=== PATIENT | male | born 1965 | race Caucasian/White ===

== ENCOUNTER 2021-08-14 05:56 | Emergency (ER) | payer MEDICAID ==
[~2021-08-14] VITALS: Ht 177.8 cm; Wt 68.2 kg
[2021-08-14 06:02] VITALS: BP 144/74
== END 2021-08-14 07:25 | disposition left against medical advice (07) ==
LOC: ER 05:56
DX: L53.9 Erythematous condition, unspecified (principal); Z53.21 Procedure and treatment not carried out due to patient leaving prior to being seen by health care provider

== ENCOUNTER 2022-01-30 04:26 | Emergency (ER) | payer MEDICAID ==
[~2022-01-30] VITALS: Ht 180.3 cm; Wt 68.2 kg
[2022-01-30 04:30] VITALS: BP 112/70
== END 2022-01-30 07:46 | disposition left against medical advice (07) ==
LOC: ER 04:26
DX: Z76.0 Encounter for issue of repeat prescription (principal); Z53.21 Procedure and treatment not carried out due to patient leaving prior to being seen by health care provider

== ENCOUNTER 2022-02-24 18:54 | Emergency (ER) | payer MEDICAID ==
[~2022-02-24] VITALS: Ht 177.8 cm; Wt 65.9 kg
[2022-02-24 19:15] VITALS: BP 129/80
[2022-02-24] MEDS ORDERED: sulfamethoxazole/trimethoprim DS (800/160mg) tablet PO ONE (20:55)
[2022-02-24] MEDS ORDERED: SULF1TAB49 PO (20:57)
== END 2022-02-24 21:25 | disposition home or self-care (01) ==
LOC: ER 18:55
DX: L02.31 Cutaneous abscess of buttock (principal); F12.10 Cannabis abuse, uncomplicated; F15.10 Other stimulant abuse, uncomplicated; G89.29 Other chronic pain; M54.9 Dorsalgia, unspecified; Z59.00 Homelessness unspecified; Z56.0 Unemployment, unspecified; Z88.0 Allergy status to penicillin; Z79.899 Other long term (current) drug therapy
CPT/HCPCS: 99283

== ENCOUNTER 2022-03-04 00:43 | Emergency (ER) | payer MEDICAID ==
[~2022-03-04] VITALS: Ht 177.8 cm; Wt 65.9 kg
[~2022-03-04 00:43] MED LIST: SULF1TAB49 PO
[2022-03-04 01:18] VITALS: BP 105/72
== END 2022-03-04 02:28 | disposition left against medical advice (07) ==
LOC: ER 00:44
DX: Z76.0 Encounter for issue of repeat prescription (principal); Z53.21 Procedure and treatment not carried out due to patient leaving prior to being seen by health care provider

== ENCOUNTER 2022-03-27 21:17 | Emergency (ER) | payer MEDICAID ==
[~2022-03-27] VITALS: Ht 175.3 cm; Wt 60.0 kg
[2022-03-27 22:37] VITALS: BP 124/69
[2022-03-27] MEDS ORDERED: buprenorphine/naloxone 8MG-2MG SUBlingual film SL SCH (23:15)
== END 2022-03-27 23:32 | disposition home or self-care (01) ==
LOC: ER 21:18
DX: F11.23 Opioid dependence with withdrawal (principal); G89.29 Other chronic pain; M54.50 Low back pain, unspecified; F17.200 Nicotine dependence, unspecified, uncomplicated; F15.20 Other stimulant dependence, uncomplicated; Z56.0 Unemployment, unspecified; Z59.00 Homelessness unspecified
CPT/HCPCS: 99284

== ENCOUNTER 2022-04-03 14:53 | Emergency (ER) | payer MEDICAID ==
[~2022-04-03] VITALS: Ht 177.8 cm; Wt 70.0 kg
[2022-04-03 15:09] VITALS: BP 115/69
[2022-04-03] MEDS ORDERED: buprenorphine/naloxone 8MG-2MG SUBlingual film SL STA (15:48)
[2022-04-03] MEDS ORDERED: BUPR1FIL3 SL (15:50)
--- NOTE | 2022-04-03 16:18 | NUR ---
Met with patient in regards to starting Suboxone. Patient has been on Suboxone in the past and wants to restart. Gianluca is starting patient today and I set patient up with [facility] to continue meds. I gave patient my card to call me with any questions.
== END 2022-04-03 16:24 | disposition home or self-care (01) ==
LOC: ER 14:53
DX: F11.90 Opioid use, unspecified, uncomplicated (principal); Z76.0 Encounter for issue of repeat prescription
CPT/HCPCS: 99283

== ENCOUNTER 2022-04-12 06:35 | Emergency (ER) | payer MEDICAID ==
[~2022-04-12] VITALS: Ht 177.8 cm; Wt 68.9 kg
[2022-04-12 06:39] VITALS: BP 130/83
[2022-04-12 09:01] LABS: BASOPHILS # (AUTO) 0.1 X10'3 (0-0.2); BASOPHILS % (AUTO) 0.9 % (0-1); EOSINOPHILS # (AUTO) 0.2 X10'3 (0-0.9); EOSINOPHILS % (AUTO) 2.9 % (0-6); HEMATOCRIT 37.8 % (35.0-45.0); HEMOGLOBIN 12.7 g/dl (12.0-16.0); LYMPHOCYTES # (AUTO) 1.9 X10'3 (1.1-4.8); LYMPHOCYTES % (AUTO) 23.6 % (21-51); MEAN CORPUSCULAR HEMOGLOBIN 29.9 PG (27.0-31.0); MEAN CORPUSCULAR HGB CONC 33.5 g/dL (33.0-36.5); MEAN CORPUSCULAR VOLUME 89.1 FL (78-98); MONOCYTES # (AUTO) 0.9 X10'3 (0-0.9); MONOCYTES % (AUTO) 11.4 % (2-12); NEUTROPHILS # (AUTO) 4.9 X10'3 (1.8-7.7); NEUTROPHILS % (AUTO) 61.2 % (42-75); PLATELET COUNT 245 X10'3 (140-440); RED BLOOD COUNT 4.24 X10'6 (4.20-5.60); RED CELL DISTRIBUTION WIDTH 14.3 % (11.5-14.5); WHITE BLOOD COUNT 8.1 X10'3 (4.5-11.0)
[2022-04-12 09:11] LABS: ALANINE AMINOTRANSFERASE 51 U/L (12-78); ALBUMIN 3.5 G/DL (3.4-5.0); ALBUMIN/GLOBULIN RATIO 0.9 (1.1-1.5); ALKALINE PHOSPHATASE 100 IU/L (46-116); ANION GAP 7 (8-16); ASPARTATE AMINO TRANSFERASE 33 U/L (10-37); BILIRUBIN,TOTAL 0.1 MG/DL (0.1-1.0); BLOOD UREA NITROGEN 23 MG/DL (7-18); BUN/CREATININE RATIO 23.2 (6.6-38.0); CALCIUM 9.1 MG/DL (8.5-10.1); CHLORIDE 104 MMOL/L (99-107); CREATININE 0.99 MG/DL (0.40-0.90); GLUCOSE 96 MG/DL (70-104); POTASSIUM 4.3 MMOL/L (3.5-5.1); SODIUM 137 MMOL/L (135-145); TOTAL CARBON DIOXIDE 25.6 MMOL/L (24-32); TOTAL PROTEIN 7.4 G/DL (6.4-8.2); eGFR 58 ML/MIN
[2022-04-12 09:13] LABS: ETHANOL < 0.010 GM/DL (0.0-0.010)
--- NOTE | 2022-04-12 09:45 | NUR ---
PT BECAME AGITATED THAT HE HAD BEEN WAITING FOR TOO LONG AND HIS CONDITION WAS AN "EMERGENCY." PT WAS ASKED TO RETURN TO ROOM AND SECURITY WAS CALLED FOR STANDBY. DEESCELATION WAS ATTEMPTED WITH PT BUT WAS UNSUCCESSFUL. PT REQUESTED AMA PAPERWORK AND LEFT THE ER AMBULATORY, ESCORTED BY SECURITY.
== END 2022-04-12 10:00 | disposition left against medical advice (07) ==
LOC: ER 06:36 → EDSEX 06:36 → ER 10:00
DX: Z76.0 Encounter for issue of repeat prescription (principal); R11.0 Nausea; R19.7 Diarrhea, unspecified; G89.29 Other chronic pain; F15.90 Other stimulant use, unspecified, uncomplicated; F19.90 Other psychoactive substance use, unspecified, uncomplicated; Z60.2 Problems related to living alone; Z59.00 Homelessness unspecified; Z56.0 Unemployment, unspecified
CPT/HCPCS: 36415; 80053; 80320; 85025; 99283

== ENCOUNTER 2022-04-13 22:58 | Emergency (ER) | payer MEDICAID ==
[~2022-04-13] VITALS: Ht 177.8 cm; Wt 68.2 kg
[2022-04-13 23:15] VITALS: BP 127/65
== END 2022-04-14 02:45 | disposition left against medical advice (07) ==
LOC: ER 22:59
DX: Z76.0 Encounter for issue of repeat prescription (principal); Z53.21 Procedure and treatment not carried out due to patient leaving prior to being seen by health care provider

== ENCOUNTER 2022-04-14 03:02 | Emergency (ER) | payer MEDICAID | END 2022-04-14 07:14 | disposition left against medical advice (07) | LOC: ER 03:03 | DX: Z00.8 Encounter for other general examination (principal); Z53.21 Procedure and treatment not carried out due to patient leaving prior to being seen by health care provider ==

== ENCOUNTER 2022-05-09 04:10 | Emergency (ER) | payer MEDICAID ==
[~2022-05-09] VITALS: Ht 177.8 cm; Wt 72.5 kg
[2022-05-09 04:32] VITALS: BP 124/80
[2022-05-09] MEDS ORDERED: ibuprofen tablet 400 MG TABLET PO ONE (05:15)
[2022-05-09] MEDS ORDERED: acetaminophen 325mg tablet PO ONE (05:15)
== END 2022-05-09 05:29 | disposition home or self-care (01) ==
LOC: ER 04:11
DX: M79.671 Pain in right foot (principal); M79.672 Pain in left foot; G89.29 Other chronic pain; M54.9 Dorsalgia, unspecified; F15.10 Other stimulant abuse, uncomplicated; Z59.00 Homelessness unspecified; Z56.0 Unemployment, unspecified
CPT/HCPCS: 99283

== ENCOUNTER 2022-05-18 11:06 | Emergency (ER) | payer MEDICAID ==
[~2022-05-18] VITALS: Ht 177.8 cm; Wt 90.0 kg
[2022-05-18 11:12] VITALS: BP 134/74
[2022-05-18] MEDS ORDERED: buprenorphine/naloxone 8MG-2MG SUBlingual film SL STA (11:41)
[2022-05-18] MEDS ORDERED: gabapentin 300mg capsule PO ONE (11:45)
[2022-05-18] MEDS ORDERED: GABA800T PO (11:46)
== END 2022-05-18 12:16 | disposition home or self-care (01) ==
LOC: ER 11:07
DX: G62.9 Polyneuropathy, unspecified (principal); F11.90 Opioid use, unspecified, uncomplicated; G89.29 Other chronic pain; F15.90 Other stimulant use, unspecified, uncomplicated; F19.90 Other psychoactive substance use, unspecified, uncomplicated; Z60.2 Problems related to living alone; Z59.00 Homelessness unspecified; Z56.0 Unemployment, unspecified; Z79.899 Other long term (current) drug therapy
CPT/HCPCS: 99283

== ENCOUNTER 2022-05-18 19:06 | Emergency (ER) | payer MEDICAID ==
[~2022-05-18] VITALS: Ht 177.8 cm; Wt 71.6 kg
[~2022-05-18 19:06] MED LIST changes: +GABA800T PO; -SULF1TAB49 PO
[2022-05-18 19:16] VITALS: BP 123/78
== END 2022-05-18 21:10 | disposition home or self-care (01) ==
LOC: ER 19:07
DX: M79.671 Pain in right foot (principal); T78.1XXA Other adverse food reactions, not elsewhere classified, initial encounter; M79.672 Pain in left foot; G89.29 Other chronic pain; F15.90 Other stimulant use, unspecified, uncomplicated; F19.90 Other psychoactive substance use, unspecified, uncomplicated; Z60.2 Problems related to living alone; Z56.0 Unemployment, unspecified; Z59.00 Homelessness unspecified; Z79.899 Other long term (current) drug therapy; X58.XXXA Exposure to other specified factors, initial encounter
CPT/HCPCS: 99281

== ENCOUNTER 2022-05-27 00:37 | Emergency (ER) | payer MEDICAID ==
[~2022-05-27] VITALS: Ht 177.8 cm; Wt 80.0 kg
[2022-05-27] MEDS ORDERED: acetaminophen 325mg tablet PO STA (07:15)
[2022-05-27] MEDS ORDERED: normal saline 1000ML IV soln IV ONE (07:15)
[2022-05-27] MEDS ORDERED: CefTRIAXone 2gm/D5W 50ml BAG 50 ML IV ONE (07:15)
[2022-05-27 07:40] VITALS: BP 109/81
--- NOTE | 2022-05-27 07:45 | NUR ---
pt given turkey sandwhich, cheese and juice per request. iv est. labs drawn and sent. will continue to monitor.
[2022-05-27 08:00] LABS: BASOPHILS % (AUTO) 0.2 % (0-1); EOSINOPHILS # (AUTO) 0.2 X10'3 (0-0.9); EOSINOPHILS % (AUTO) 0.6 % (0-6); HEMATOCRIT 36.7 % (35.0-45.0); HEMOGLOBIN 12.7 g/dl (12.0-16.0); LYMPHOCYTES # (AUTO) 1.5 X10'3 (1.1-4.8); LYMPHOCYTES % (AUTO) 6.3 % (21-51); MEAN CORPUSCULAR HEMOGLOBIN 30.1 PG (27.0-31.0); MEAN CORPUSCULAR HGB CONC 34.5 g/dL (33.0-36.5); MEAN CORPUSCULAR VOLUME 87.3 FL (78-98); MEAN PLATELET VOLUME 6.2 FL (7.4-10.4); MONOCYTES # (AUTO) 1.4 X10'3 (0-0.9); MONOCYTES % (AUTO) 5.7 % (2-12); NEUTROPHILS % (AUTO) 87.2 % (42-75); PLATELET COUNT 420 X10'3 (140-440); RED BLOOD COUNT 4.21 X10'6 (4.20-5.60); RED CELL DISTRIBUTION WIDTH 13.4 % (11.5-14.5); WHITE BLOOD COUNT 24.1 X10'3 (4.5-11.0)
[2022-05-27 08:02] LABS: CLARITY,URINE CLEAR (Clear); COLOR,URINE STRAW (Yellow); GLUCOSE, URINE NEGATIVE (Neg); KETONES,URINE NEGATIVE (Neg); LEUKOCYTE ESTERASE ,URINE NEGATIVE (Neg); NITRITES, URINE NEGATIVE (Neg); OCCULT BLOOD,URINE SMALL (Neg); PH,URINE 6.5 (4.8-8.0); PROTEIN,URINE NEGATIVE (Neg); UROBILINOGEN,URINE 0.2 E.U/dL (0.2-1.0)
[2022-05-27 08:03] LABS: UA COLLECTION TYPE NON-SPECIFIED
[2022-05-27 08:08] LABS: SQUAMOUS EPITHELIAL CELL,UR FEW /LPF (FEW); TRANSITIONAL EPI CELLS,URINE FEW /HPF
[2022-05-27 08:09] LABS: BACTERIA,URINE 2+ /HPF (Neg)
[2022-05-27] MEDS ORDERED: DOXY-411 PO (08:30)
--- NOTE | 2022-05-27 08:33 | NUR ---
Per director of digital technology, pt pulling out IV. went into speak with pt. states he needs to leave while it is still warm outside and get hot meal. infomred pt we could get tray from cafeteria but it would take a few minutes. pt states no needed to leave now. Dr stallworth. Dr Hall attempted to have pt stay and informed pt of risks of signing out. pt signed out ama. iv dcd. pt amb to exit with steady gait and belonings.
[2022-05-27 08:46] LABS: BLOOD UREA NITROGEN 22 MG/DL (7-18); BUN/CREATININE RATIO 20.8 (6.6-38.0); CHLORIDE 98 MMOL/L (99-107); CREATININE 1.06 MG/DL (0.40-0.90); GLUCOSE 124 MG/DL (70-104); POTASSIUM 4.5 MMOL/L (3.5-5.1); SODIUM 131 MMOL/L (135-145); eGFR 54 ML/MIN
[2022-05-27 08:55] LABS: ALANINE AMINOTRANSFERASE 38 U/L (12-78); ALBUMIN 2.9 G/DL (3.4-5.0); ALBUMIN/GLOBULIN RATIO 0.5 (1.1-1.5); ALKALINE PHOSPHATASE 110 IU/L (46-116); ANION GAP 11 (8-16); ASPARTATE AMINO TRANSFERASE 24 U/L (10-37); BILIRUBIN,TOTAL 0.4 MG/DL (0.1-1.0); CALCIUM 9.2 MG/DL (8.5-10.1); MAGNESIUM 1.8 MG/DL (1.5-2.4); TOTAL CARBON DIOXIDE 22.5 MMOL/L (24-32); TOTAL PROTEIN 8.5 G/DL (6.4-8.2)
[2022-05-27 09:21] LABS: PLATELET ESTIMATE NORMAL; TOTAL CELLS COUNTED 100
== END 2022-05-27 08:37 | disposition left against medical advice (07) ==
LOC: ER 00:37
DX: R06.02 Shortness of breath (principal); Z20.822 Contact with and (suspected) exposure to COVID-19; R09.1 Pleurisy; J18.1 Lobar pneumonia, unspecified organism; D72.829 Elevated white blood cell count, unspecified; G89.29 Other chronic pain; M54.50 Low back pain, unspecified; F15.20 Other stimulant dependence, uncomplicated; Z59.00 Homelessness unspecified; Z56.0 Unemployment, unspecified
CPT/HCPCS: 36415; 71046; 80053; 81001; 83605; 83735; 84145; 84484; 85007; 85025; 87040; 87088; 87502; 87503; 87635; 93005; 96365; 99285; C9803; J0696; J7030

== ENCOUNTER 2022-06-16 06:40 | Emergency (ER) | payer MEDICAID ==
[~2022-06-16] VITALS: Ht 177.8 cm; Wt 80.0 kg
[2022-06-16 06:56] VITALS: BP 185/65
== END 2022-06-16 10:45 | disposition left against medical advice (07) ==
LOC: ER 06:41
DX: J00 Acute nasopharyngitis [common cold] (principal); R05.9 Cough, unspecified; R09.89 Other specified symptoms and signs involving the circulatory and respiratory systems; Z53.21 Procedure and treatment not carried out due to patient leaving prior to being seen by health care provider

== ENCOUNTER 2022-06-22 02:11 | Emergency (ER) | payer MEDICAID ==
[~2022-06-22] VITALS: Ht 175.3 cm; Wt 70.8 kg
[2022-06-22 02:15] VITALS: BP 137/82
[2022-06-22 03:28] LABS: BASOPHILS % (AUTO) 0.5 % (0-1); EOSINOPHILS # (AUTO) 1.1 X10'3 (0-0.9); EOSINOPHILS % (AUTO) 10.8 % (0-6); HEMATOCRIT 37.7 % (35.0-45.0); HEMOGLOBIN 12.6 g/dl (12.0-16.0); LYMPHOCYTES # (AUTO) 2.5 X10'3 (1.1-4.8); LYMPHOCYTES % (AUTO) 23.4 % (21-51); MEAN CORPUSCULAR HEMOGLOBIN 29.6 PG (27.0-31.0); MEAN CORPUSCULAR HGB CONC 33.6 g/dL (33.0-36.5); MEAN PLATELET VOLUME 6.5 FL (7.4-10.4); MONOCYTES # (AUTO) 0.9 X10'3 (0-0.9); MONOCYTES % (AUTO) 8.5 % (2-12); NEUTROPHILS % (AUTO) 56.8 % (42-75); PLATELET COUNT 358 X10'3 (140-440); RED BLOOD COUNT 4.28 X10'6 (4.20-5.60); RED CELL DISTRIBUTION WIDTH 15.2 % (11.5-14.5); WHITE BLOOD COUNT 10.5 X10'3 (4.5-11.0)
[2022-06-22 03:47] LABS: PLATELET ESTIMATE NORMAL; TOTAL CELLS COUNTED 100
[2022-06-22 03:52] LABS: ALANINE AMINOTRANSFERASE 42 U/L (12-78); ALBUMIN 3.6 G/DL (3.4-5.0); ALBUMIN/GLOBULIN RATIO 0.8 (1.1-1.5); ALKALINE PHOSPHATASE 107 IU/L (46-116); ANION GAP 6 (8-16); ASPARTATE AMINO TRANSFERASE 35 U/L (10-37); BILIRUBIN,TOTAL 0.2 MG/DL (0.1-1.0); BLOOD UREA NITROGEN 20 MG/DL (7-18); CALCIUM 9.4 MG/DL (8.5-10.1); CHLORIDE 103 MMOL/L (99-107); CREATININE 1.25 MG/DL (0.40-0.90); GLUCOSE 75 MG/DL (70-104); SODIUM 136 MMOL/L (135-145); TOTAL CARBON DIOXIDE 26.6 MMOL/L (24-32); TOTAL PROTEIN 8.1 G/DL (6.4-8.2); eGFR 44 ML/MIN
== END 2022-06-22 08:26 | disposition left against medical advice (07) ==
LOC: ER 02:12
DX: R05.9 Cough, unspecified (principal); Z53.21 Procedure and treatment not carried out due to patient leaving prior to being seen by health care provider
CPT/HCPCS: 71046; 80053; 83880; 85007; 85025

== ENCOUNTER 2022-06-30 05:09 | Emergency (ER) | payer MEDICAID ==
[~2022-06-30] VITALS: Ht 177.8 cm; Wt 72.7 kg
[2022-06-30 05:16] VITALS: BP 137/74
[2022-06-30] MEDS ORDERED: buprenorphine/naloxone 8MG-2MG SUBlingual film SL STA (06:58)
[2022-06-30] MEDS ORDERED: cloNIDine 0.1 mg tablet PO ONE (07:00)
== END 2022-06-30 08:03 | disposition home or self-care (01) ==
LOC: ER 05:11
DX: F15.23 Other stimulant dependence with withdrawal (principal); G89.29 Other chronic pain; M54.9 Dorsalgia, unspecified; Z88.8 Allergy status to other drugs, medicaments and biological substances; Z79.1 Long term (current) use of non-steroidal anti-inflammatories (NSAID); Z56.0 Unemployment, unspecified; Z59.00 Homelessness unspecified
CPT/HCPCS: 99283

== ENCOUNTER 2022-07-06 22:38 | Emergency (ER) | payer MEDICAID ==
[~2022-07-06] VITALS: Ht 177.8 cm; Wt 72.7 kg
[2022-07-06 22:45] VITALS: BP 107/69
== END 2022-07-07 02:55 | disposition left against medical advice (07) ==
LOC: ER 22:39
DX: M54.2 Cervicalgia (principal); Z53.21 Procedure and treatment not carried out due to patient leaving prior to being seen by health care provider

== ENCOUNTER 2022-07-08 07:45 | Emergency (ER) | payer MEDICAID ==
[~2022-07-08] VITALS: Ht 177.8 cm; Wt 72.0 kg
[2022-07-08 07:47] VITALS: BP 136/87
== END 2022-07-08 11:50 | disposition left against medical advice (07) ==
LOC: ER 07:46
DX: M54.2 Cervicalgia (principal); R51.9 Headache, unspecified; Z53.21 Procedure and treatment not carried out due to patient leaving prior to being seen by health care provider

== ENCOUNTER 2022-07-24 05:40 | Emergency (ER) | payer MEDICAID ==
[~2022-07-24] VITALS: Ht 175.3 cm; Wt 72.7 kg
[2022-07-24] MEDS ORDERED: buprenorphine/naloxone 8MG-2MG SUBlingual film SL ONE (07:55)
[2022-07-24 08:19] VITALS: BP 138/90
--- NOTE | 2022-07-24 08:38 | NUR ---
Met with patient for [facility]. Patient ran out of Suboxone 4 days ago. Patient came here to restart Suboxone. I gave patient information on [facility] and my card to call me with any questions.
[2022-07-24] MEDS ORDERED: BUPR1FIL3 SL (08:53)
== END 2022-07-24 09:00 | disposition home or self-care (01) ==
LOC: ER 05:41
DX: F11.23 Opioid dependence with withdrawal (principal); F19.10 Other psychoactive substance abuse, uncomplicated; G89.29 Other chronic pain; F15.90 Other stimulant use, unspecified, uncomplicated; Z59.00 Homelessness unspecified; Z56.0 Unemployment, unspecified; Z60.2 Problems related to living alone; Z79.899 Other long term (current) drug therapy
CPT/HCPCS: 99283

== ENCOUNTER 2022-08-05 08:06 | Emergency (ER) | payer MEDICAID ==
[~2022-08-05] VITALS: Ht 175.3 cm; Wt 75.0 kg
[2022-08-05] MEDS ORDERED: benzonatate 100mg capsule PO ONE (08:40)
[2022-08-05 09:13] LABS: BASOPHILS % (AUTO) 0.6 % (0-1); EOSINOPHILS % (AUTO) 0.6 % (0-6); HEMOGLOBIN 13.2 g/dl (12.0-16.0); LYMPHOCYTES # (AUTO) 0.9 X10'3 (1.1-4.8); LYMPHOCYTES % (AUTO) 10.1 % (21-51); MEAN CORPUSCULAR HGB CONC 33.7 g/dL (33.0-36.5); MEAN CORPUSCULAR VOLUME 85.9 FL (78-98); MEAN PLATELET VOLUME 6.9 FL (7.4-10.4); MONOCYTES # (AUTO) 0.9 X10'3 (0-0.9); MONOCYTES % (AUTO) 9.9 % (2-12); NEUTROPHILS # (AUTO) 6.8 X10'3 (1.8-7.7); NEUTROPHILS % (AUTO) 78.8 % (42-75); PLATELET COUNT 248 X10'3 (140-440); RED BLOOD COUNT 4.55 X10'6 (4.20-5.60); RED CELL DISTRIBUTION WIDTH 14.6 % (11.5-14.5); WHITE BLOOD COUNT 8.7 X10'3 (4.5-11.0)
[2022-08-05 09:22] LABS: D-DIMER 0.22 MG/L FEU (0-0.50)
[2022-08-05 09:27] LABS: ALANINE AMINOTRANSFERASE 75 U/L (12-78); ALBUMIN 3.4 G/DL (3.4-5.0); ALBUMIN/GLOBULIN RATIO 0.8 (1.1-1.5); ALKALINE PHOSPHATASE 137 IU/L (46-116); ANION GAP 13 (8-16); ASPARTATE AMINO TRANSFERASE 44 U/L (10-37); BILIRUBIN,TOTAL 0.3 MG/DL (0.1-1.0); BLOOD UREA NITROGEN 14 MG/DL (7-18); CALCIUM 8.8 MG/DL (8.5-10.1); CHLORIDE 100 MMOL/L (99-107); CREATININE 1.27 MG/DL (0.40-0.90); GLUCOSE 169 MG/DL (70-104); SODIUM 135 MMOL/L (135-145); TOTAL CARBON DIOXIDE 21.9 MMOL/L (24-32); TOTAL PROTEIN 7.6 G/DL (6.4-8.2); eGFR 44 ML/MIN
[2022-08-05] MEDS ORDERED: BENZ-38 PO (10:23)
[2022-08-05 11:11] VITALS: BP 132/78
== END 2022-08-05 11:14 | disposition home or self-care (01) ==
LOC: ER 08:07
DX: R05.9 Cough, unspecified (principal); Z20.822 Contact with and (suspected) exposure to COVID-19; F17.200 Nicotine dependence, unspecified, uncomplicated; F12.90 Cannabis use, unspecified, uncomplicated; F15.20 Other stimulant dependence, uncomplicated; Z59.00 Homelessness unspecified; Z56.0 Unemployment, unspecified
CPT/HCPCS: 36415; 71046; 80053; 85025; 85379; 87502; 87503; 87635; 99284; C9803

== ENCOUNTER 2022-08-07 18:39 | Emergency (ER) | payer MEDICAID ==
[~2022-08-07] VITALS: Ht 175.3 cm; Wt 75.6 kg
[~2022-08-07 18:39] MED LIST changes: +BENZ-38 PO
[2022-08-07 18:55] VITALS: BP 175/96
[2022-08-07] MEDS ORDERED: BUPR1FIL3 SL (23:39)
[2022-08-07] MEDS ORDERED: ondansetron 4mg rapidly disintigrating tab PO ONE (23:40)
[2022-08-07] MEDS ORDERED: buprenorphine/naloxone 8MG-2MG SUBlingual film SL ONE (23:40)
[2022-08-07] MEDS ORDERED: BICT1TAB PO (23:44)
--- NOTE | 2022-08-08 00:18 | NUR ---
Patient seen and discharged by MD prior to primary nurse assesment, see provider notes.
== END 2022-08-08 00:36 | disposition home or self-care (01) ==
LOC: ER 18:40
DX: F11.23 Opioid dependence with withdrawal (principal); R68.83 Chills (without fever); M54.50 Low back pain, unspecified; F12.90 Cannabis use, unspecified, uncomplicated; F15.20 Other stimulant dependence, uncomplicated; Z59.00 Homelessness unspecified; Z56.0 Unemployment, unspecified
CPT/HCPCS: 99283

== ENCOUNTER 2022-12-17 15:52 | Emergency (ER) | payer MEDICAID ==
[~2022-12-17 15:52] MED LIST changes: -BENZ-38 PO; +BICT1TAB PO
== END 2022-12-17 17:20 | disposition left against medical advice (07) ==
LOC: ER 15:53
DX: Z76.0 Encounter for issue of repeat prescription (principal); Z53.21 Procedure and treatment not carried out due to patient leaving prior to being seen by health care provider

== ENCOUNTER 2023-01-01 02:31 | Emergency (ER) | payer MEDICAID ==
[~2023-01-01] VITALS: Ht 152.4 cm; Wt 71.8 kg
[2023-01-01 02:35] VITALS: BP 125/83
== END 2023-01-01 04:29 | disposition left against medical advice (07) ==
LOC: ER 02:32
DX: M79.671 Pain in right foot (principal); M79.672 Pain in left foot; Z53.21 Procedure and treatment not carried out due to patient leaving prior to being seen by health care provider
CPT/HCPCS: 99281

== ENCOUNTER 2023-04-30 02:33 | Emergency (ER) | payer MEDICAID ==
[~2023-04-30] VITALS: Ht 177.8 cm; Wt 77.3 kg
[2023-04-30 03:37] VITALS: BP 142/82; PULSE 89; RESP 20; TEMP 98.7; O2SAT 100
== END 2023-04-30 09:12 | disposition left against medical advice (07) ==
LOC: ER 02:34
DX: J11.1 Influenza due to unidentified influenza virus with other respiratory manifestations (principal); Z53.21 Procedure and treatment not carried out due to patient leaving prior to being seen by health care provider
CPT/HCPCS: 71046; 99281

== ENCOUNTER 2023-09-25 01:10 | Emergency (ER) | payer MEDICAID ==
[~2023-09-25] VITALS: Ht 177.8 cm; Wt 77.3 kg
[2023-09-25] MEDS: acetaminophen 325mg tablet PO ONE (02:24)
[2023-09-25] MEDS: ondansetron/PF 4mg/2ml inj IV ONE (02:25)
[2023-09-25] MEDS: normal saline 1000ML IV soln IV ONE (02:26)
[2023-09-25 02:27] LABS: BASOPHILS # (AUTO) 0.1 X10'3 (0-0.2); BASOPHILS % (AUTO) 0.6 % (0-1); EOSINOPHILS # (AUTO) 0.1 X10'3 (0-0.9); HEMATOCRIT 36.7 % (42.0-52.0); HEMOGLOBIN 12.4 g/dl (14.0-17.9); LYMPHOCYTES # (AUTO) 1.2 X10'3 (1.1-4.8); LYMPHOCYTES % (AUTO) 10.1 % (21-51); MEAN CORPUSCULAR HEMOGLOBIN 29.2 PG (27.0-31.0); MEAN CORPUSCULAR HGB CONC 33.7 g/dL (33.0-36.5); MEAN CORPUSCULAR VOLUME 86.4 FL (78-98); MEAN PLATELET VOLUME 6.9 FL (7.4-10.4); MONOCYTES # (AUTO) 1.1 X10'3 (0-0.9); MONOCYTES % (AUTO) 9.2 % (2-12); NEUTROPHILS # (AUTO) 9.3 X10'3 (1.8-7.7); NEUTROPHILS % (AUTO) 79.1 % (42-75); PLATELET COUNT 270 X10'3 (140-440); RED BLOOD COUNT 4.25 X10'6 (4.70-6.10); RED CELL DISTRIBUTION WIDTH 14.2 % (11.5-14.5); WHITE BLOOD COUNT 11.8 X10'3 (4.5-11.0)
[2023-09-25 02:37] LABS: ALBUMIN 3.1 G/DL (3.4-5.0); ANION GAP 9 (8-16); BLOOD UREA NITROGEN 21 MG/DL (7-18); BUN/CREATININE RATIO 17.4 (10.0-20.0); CALCIUM 8.4 MG/DL (8.5-10.1); CHLORIDE 97 MMOL/L (99-107); CREATININE 1.21 MG/DL (0.60-1.10); GLUCOSE 173 MG/DL (70-104); MAGNESIUM 1.3 MG/DL (1.5-2.4); POTASSIUM 4.1 MMOL/L (3.5-5.1); SODIUM 130 MMOL/L (135-145); TOTAL CARBON DIOXIDE 24.5 MMOL/L (24-32); eCRCL 70 ML/MIN; eGFR 62 ML/MIN
[2023-09-25] MEDS ORDERED: ketorolac trometh. 30mg/ml inj. IV ONE (03:35)
[2023-09-25 03:48] LABS: BILIRUBIN,URINE NEGATIVE (Neg); CLARITY,URINE SLIGHTLY CLOUDY (Clear); COLOR,URINE YELLOW (Yellow); GLUCOSE, URINE NEGATIVE (Neg); KETONES,URINE NEGATIVE (Neg); LEUKOCYTE ESTERASE ,URINE SMALL (Neg); NITRITES, URINE POSITIVE (Neg); OCCULT BLOOD,URINE SMALL (Neg); PROTEIN,URINE NEGATIVE (Neg); UROBILINOGEN,URINE 0.2 E.U/dL (0.2-1.0)
[2023-09-25 04:02] LABS: UA COLLECTION TYPE URINAL
[2023-09-25 04:04] LABS: AMORPHOUS PHOSPHATES 1+; BACTERIA,URINE 4+ /HPF (Neg); SQUAMOUS EPITHELIAL CELL,UR FEW /LPF (FEW); TRANSITIONAL EPI CELLS,URINE FEW /HPF; WBC CLUMPS,URINE FEW /HPF (NEGATIVE)
[2023-09-25] MEDS: ketorolac tromethamine 15mg/ml inj. IV ONE (04:14)
[2023-09-25] MEDS ORDERED: LEVO-65 PO (04:14)
[2023-09-25] MEDS: CefTRIAXone 2gm/D5W 50ml BAG 50 ML IV ONE (04:15)
[2023-09-25] MEDS: levoFLOXACIN 250mg tablet PO ONE (04:27)
[2023-09-25 05:53] VITALS: BP 116/60; PULSE 82; RESP 16; TEMP 97.8; O2SAT 97
== END 2023-09-25 05:50 | disposition home or self-care (01) ==
LOC: ER 01:11
DX: N39.0 Urinary tract infection, site not specified (principal); Z20.822 Contact with and (suspected) exposure to COVID-19; R05.9 Cough, unspecified; R09.81 Nasal congestion; K59.00 Constipation, unspecified; F12.90 Cannabis use, unspecified, uncomplicated; F15.90 Other stimulant use, unspecified, uncomplicated; Z79.899 Other long term (current) drug therapy; Z79.2 Long term (current) use of antibiotics
CPT/HCPCS: 36415; 71045; 80048; 81001; 83735; 84145; 85025; 87088; 87186; 87502; 87503; 87811; 93005; 96361; 96365; 96375; 99285; J0696; J1885; J2405; J7030; 87077

== ENCOUNTER 2023-10-01 02:45 | Emergency (ER) | payer MEDICAID ==
[~2023-10-01] VITALS: Ht 177.8 cm; Wt 77.3 kg
[~2023-10-01 02:45] MED LIST changes: +LEVO-65 PO
[2023-10-01] MEDS ORDERED: BICT1TAB PO (03:58)
[2023-10-01] MEDS ORDERED: BUPR1FIL3 SL ×2 (04:00→04:01)
[2023-10-01 04:12] VITALS: BP 126/78; PULSE 80; RESP 16; TEMP 98.6; O2SAT 97
== END 2023-10-01 04:13 | disposition home or self-care (01) ==
LOC: ER 02:45
DX: Z00.00 Encounter for general adult medical examination without abnormal findings (principal); F12.90 Cannabis use, unspecified, uncomplicated; F15.90 Other stimulant use, unspecified, uncomplicated; Z79.899 Other long term (current) drug therapy; Z79.2 Long term (current) use of antibiotics
CPT/HCPCS: 99283

== ENCOUNTER 2024-02-23 18:08 | Emergency (ER) | payer MEDICAID ==
[~2024-02-23] VITALS: Ht 177.8 cm; Wt 70.4 kg
[~2024-02-23 18:08] MED LIST changes: -LEVO-65 PO
--- NOTE | 2024-02-23 18:45 | NUR ---
pt was placed in room by dayshift. Upon entering room pt was noted to be in the restroom.
[2024-02-23 18:50] LABS: BASOPHILS # (AUTO) 0.1 X10'3 (0-0.2); BASOPHILS % (AUTO) 0.9 % (0-1); EOSINOPHILS # (AUTO) 0.1 X10'3 (0-0.9); EOSINOPHILS % (AUTO) 1.7 % (0-6); HEMATOCRIT 37.6 % (42.0-52.0); HEMOGLOBIN 12.6 g/dl (14.0-17.9); LYMPHOCYTES # (AUTO) 1.8 X10'3 (1.1-4.8); MEAN CORPUSCULAR HEMOGLOBIN 29.3 PG (27.0-31.0); MEAN CORPUSCULAR HGB CONC 33.6 g/dL (33.0-36.5); MEAN CORPUSCULAR VOLUME 87.2 FL (78-98); MEAN PLATELET VOLUME 6.9 FL (7.4-10.4); MONOCYTES # (AUTO) 0.7 X10'3 (0-0.9); MONOCYTES % (AUTO) 11.2 % (2-12); NEUTROPHILS # (AUTO) 3.9 X10'3 (1.8-7.7); NEUTROPHILS % (AUTO) 59.2 % (42-75); PLATELET COUNT 262 X10'3 (140-440); RED BLOOD COUNT 4.31 X10'6 (4.70-6.10); RED CELL DISTRIBUTION WIDTH 14.6 % (11.5-14.5); WHITE BLOOD COUNT 6.6 X10'3 (4.5-11.0)
--- NOTE | 2024-02-23 19:00 | NUR ---
Pt now in room from restroom. Pt ambulated from bathroom with erect and coordinated gait. Nursing assessment complete. No signs and symptoms of distress at this time. Await provider evaluation.
[2024-02-23 19:03] LABS: ALBUMIN 3.8 G/DL (3.4-5.0); ANION GAP 12 (8-16); BLOOD UREA NITROGEN 22 MG/DL (7-18); BUN/CREATININE RATIO 16.2 (10.0-20.0); CALCIUM 9.6 MG/DL (8.5-10.1); CHLORIDE 105 MMOL/L (99-107); CREATININE 1.36 MG/DL (0.60-1.10); GLUCOSE 87 MG/DL (70-104); LIPASE 37 U/L (16-77); POTASSIUM 3.9 MMOL/L (3.5-5.1); SODIUM 140 MMOL/L (135-145); TOTAL CARBON DIOXIDE 23.5 MMOL/L (24-32); eCRCL 60 ML/MIN; eGFR 54 ML/MIN
[2024-02-23] MEDS: ondansetron 4mg rapidly disintigrating tab PO ONE (19:29)
[2024-02-23] MEDS ORDERED: ONDA-243 PO (20:18)
[2024-02-23] MEDS: buprenorphine/naloxone 8MG-2MG SUBlingual film SL ONE (20:32)
[2024-02-23 20:39] VITALS: BP 139/79; PULSE 72; RESP 18; TEMP 98.3; O2SAT 100
--- NOTE | 2024-02-23 20:40 | NUR ---
Unable to get the discharge sign page to print. Pt verbalized understanding of discharge instructions. Pt ambulated out of ED with erect and coordinated gait.
== END 2024-02-23 20:40 | disposition home or self-care (01) ==
LOC: ER 18:09
DX: F11.23 Opioid dependence with withdrawal (principal); E86.0 Dehydration; F64.0 Transsexualism; F12.90 Cannabis use, unspecified, uncomplicated; F15.90 Other stimulant use, unspecified, uncomplicated; F19.90 Other psychoactive substance use, unspecified, uncomplicated; G89.29 Other chronic pain; M54.9 Dorsalgia, unspecified; Z79.899 Other long term (current) drug therapy; Z59.00 Homelessness unspecified; Z56.0 Unemployment, unspecified; Z72.89 Other problems related to lifestyle; Z60.2 Problems related to living alone
CPT/HCPCS: 36415; 80048; 83690; 84484; 85025; 99283

== ENCOUNTER 2024-03-16 15:21 | Emergency (ER) | payer MEDICAID ==
[~2024-03-16] VITALS: Ht 175.3 cm; Wt 70.5 kg
[~2024-03-16 15:21] MED LIST changes: +ONDA-243 PO
[2024-03-16] MEDS: ondansetron 4mg rapidly disintigrating tab PO ONE (16:39)
[2024-03-16 16:45] VITALS: BP 131/68; PULSE 70; RESP 16; TEMP 98.7; O2SAT 98
== END 2024-03-16 16:55 | disposition home or self-care (01) ==
LOC: ER 15:21
DX: S09.8XXA Other specified injuries of head, initial encounter (principal); R11.0 Nausea; W22.8XXA Striking against or struck by other objects, initial encounter; Y93.89 Activity, other specified; Y92.89 Other specified places as the place of occurrence of the external cause; Y99.8 Other external cause status; G89.29 Other chronic pain; M54.9 Dorsalgia, unspecified; F17.210 Nicotine dependence, cigarettes, uncomplicated; F12.90 Cannabis use, unspecified, uncomplicated; F15.90 Other stimulant use, unspecified, uncomplicated; F19.90 Other psychoactive substance use, unspecified, uncomplicated; Z72.89 Other problems related to lifestyle; Z60.2 Problems related to living alone; Z59.00 Homelessness unspecified; Z56.0 Unemployment, unspecified; Z79.899 Other long term (current) drug therapy
CPT/HCPCS: 99283

== ENCOUNTER 2024-03-27 16:30 | Emergency (ER) | payer MEDICAID ==
[~2024-03-27] VITALS: Ht 177.8 cm; Wt 70.5 kg
[2024-03-27 16:33] VITALS: BP 116/74; PULSE 85; RESP 13; TEMP 98.1; O2SAT 99
== END 2024-03-27 17:20 | disposition left against medical advice (07) ==
LOC: ER 16:31
DX: B07.9 Viral wart, unspecified (principal); F12.90 Cannabis use, unspecified, uncomplicated; F15.10 Other stimulant abuse, uncomplicated; Z88.8 Allergy status to other drugs, medicaments and biological substances
CPT/HCPCS: 99281

== ENCOUNTER 2024-05-06 22:52 | Emergency (ER) | payer MEDICAID ==
[~2024-05-06] VITALS: Ht 175.3 cm; Wt 72.5 kg
[2024-05-06] MEDS ORDERED: BUPR1FIL7 SL (22:58)
[2024-05-06 23:07] VITALS: BP 161/62; PULSE 95; RESP 18; TEMP 97.7; O2SAT 96
== END 2024-05-06 23:04 | disposition home or self-care (01) ==
LOC: ER 22:53
DX: F11.23 Opioid dependence with withdrawal (principal); Z76.0 Encounter for issue of repeat prescription; R11.0 Nausea; G89.29 Other chronic pain; F12.90 Cannabis use, unspecified, uncomplicated; F15.90 Other stimulant use, unspecified, uncomplicated; Z79.899 Other long term (current) drug therapy
CPT/HCPCS: 99281

== ENCOUNTER 2024-06-19 07:45 | Emergency (ER) | payer MEDICAID ==
[~2024-06-19] VITALS: Ht 177.8 cm; Wt 75.0 kg
[~2024-06-19 07:45] MED LIST changes: +BUPR1FIL7 SL
[2024-06-19 07:52] VITALS: TEMP 98.5
[2024-06-19 08:51] LABS: BASOPHILS % (AUTO) 0.5 % (0-1); EOSINOPHILS % (AUTO) 0.6 % (0-6); HEMATOCRIT 38.6 % (42.0-52.0); HEMOGLOBIN 13.3 g/dl (14.0-17.9); LYMPHOCYTES # (AUTO) 1.2 X10'3 (1.1-4.8); LYMPHOCYTES % (AUTO) 14.4 % (21-51); MEAN CORPUSCULAR HGB CONC 34.5 g/dL (33.0-36.5); MONOCYTES # (AUTO) 0.8 X10'3 (0-0.9); MONOCYTES % (AUTO) 9.7 % (2-12); NEUTROPHILS # (AUTO) 6.4 X10'3 (1.8-7.7); NEUTROPHILS % (AUTO) 74.8 % (42-75); PLATELET COUNT 284 X10'3 (140-440); RED BLOOD COUNT 4.29 X10'6 (4.70-6.10); RED CELL DISTRIBUTION WIDTH 14.4 % (11.5-14.5); WHITE BLOOD COUNT 8.5 X10'3 (4.5-11.0)
[2024-06-19 09:19] LABS: ALANINE AMINOTRANSFERASE 63 U/L (12-78); ALBUMIN 3.3 G/DL (3.4-5.0); ALBUMIN/GLOBULIN RATIO 0.8 (1.1-1.5); ALKALINE PHOSPHATASE 81 IU/L (46-116); ASPARTATE AMINO TRANSFERASE 38 U/L (10-37); BILIRUBIN,TOTAL 0.4 MG/DL (0.1-1.0); BLOOD UREA NITROGEN 27 MG/DL (7-18); BUN/CREATININE RATIO 17.2 (10.0-20.0); CREATININE 1.57 MG/DL (0.60-1.10); GLUCOSE 113 MG/DL (70-104); TOTAL PROTEIN 7.3 G/DL (6.4-8.2); eCRCL 54 ML/MIN; eGFR 46 ML/MIN
[2024-06-19 09:36] LABS: ANION GAP 9 (8-16); CHLORIDE 105 MMOL/L (99-107); POTASSIUM 4.4 MMOL/L (3.5-5.1); SODIUM 136 MMOL/L (135-145); TOTAL CARBON DIOXIDE 22.1 MMOL/L (24-32)
[2024-06-19 10:19] LABS: BILIRUBIN,URINE NEGATIVE (Neg); CLARITY,URINE CLEAR (Clear); COLOR,URINE YELLOW (Yellow); GLUCOSE, URINE NEGATIVE (Neg); KETONES,URINE NEGATIVE (Neg); LEUKOCYTE ESTERASE ,URINE TRACE (Neg); OCCULT BLOOD,URINE NEGATIVE (Neg); PROTEIN,URINE NEGATIVE (Neg)
[2024-06-19 10:20] LABS: URINE AMPHETAMINE SCREEN POSITIVE (Neg); URINE BARBITUATE SCREEN NEGATIVE (Neg); URINE BENZODIAZEPINES SCREEN NEGATIVE (Neg); URINE CANNABINOID SCREEN POSITIVE (Neg); URINE COCAINE SCREEN NEGATIVE (Neg); URINE METHADONE SCREEN NEGATIVE (Neg); URINE OPIATE SCREEN NEGATIVE (Neg); URINE PHENCYCLIDINE SCREEN NEGATIVE (Neg)
[2024-06-19 10:30] LABS: NITRITES, URINE NEGATIVE (Neg); UA COLLECTION TYPE CLN CATCH MIDSTREAM
[2024-06-19 10:34] VITALS: BP 112/70; PULSE 85; RESP 16; O2SAT 96
[2024-06-19 10:34] LABS: BACTERIA,URINE FEW /HPF (Neg); MUCUS STRANDS FEW /LPF (Neg); RBC,URINE 0-2 /HPF (0-2); SQUAMOUS EPITHELIAL CELL,UR MODERATE /LPF (FEW); WBC,URINE 20-30 /HPF (0-4)
[2024-06-19] MEDS ORDERED: sulfamethoxazole/trimethoprim DS (800/160mg) tablet PO ONE (11:10)
[2024-06-19] MEDS ORDERED: SULF1TAB49 PO (11:52)
[2024-06-20 11:09] LABS: % CD 4 POS. LYMPH 40.8 % (30.8-58.5); % IMMATURE GRANULOCYTES 1 % (Not Estab.); ABSOLUTE CD 4 HELPER 530 /uL (359-1519); BASO (ABSOLUTE) 0.1 x10E3/uL (0.0-0.2); BASOS 1 % (Not Estab.); EOS 1 % (Not Estab.); EOS (ABSOLUTE) 0.1 x10E3/uL (0.0-0.4); HEMATOCRIT 39.3 % (37.5-51.0); HEMOGLOBIN 13.8 g/dL (13.0-17.7); LYMPHS 15 % (Not Estab.); LYMPHS (ABSOLUTE) 1.3 x10E3/uL (0.7-3.1); MCH 31.8 pg (26.6-33.0); MCHC 35.1 g/dL (31.5-35.7); MCV 91 fL (79-97); MONOCYTES 9 % (Not Estab.); MONOCYTES (ABSOLUTE) 0.8 x10E3/uL (0.1-0.9); NEUTROPHILS 73 % (Not Estab.); NEUTROPHILS (ABSOLUTE) 6.5 x10E3/uL (1.4-7.0); PLATELETS 285 x10E3/uL (150-450); RBC 4.34 x10E6/uL (4.14-5.80); RDW 13.4 % (11.6-15.4); WBC 8.7 x10E3/uL (3.4-10.8)
== END 2024-06-19 11:00 | disposition left against medical advice (07) ==
LOC: EDSEX 07:46 → ER 07:46
DX: N39.0 Urinary tract infection, site not specified (principal); F12.90 Cannabis use, unspecified, uncomplicated; F15.90 Other stimulant use, unspecified, uncomplicated; Z20.822 Contact with and (suspected) exposure to COVID-19
CPT/HCPCS: 36415; 80053; 80305; 81001; 85025; 86361; 87077; 87088; 87186; 87502; 87503; 87811; 99284

== ENCOUNTER 2024-12-10 13:42 | Emergency (ER) | payer MEDICAID ==
[~2024-12-10] VITALS: Ht 177.8 cm; Wt 75.0 kg
[2024-12-10 13:55] VITALS: BP 138/80; PULSE 77; RESP 18; O2SAT 96
--- NOTE | 2024-12-10 14:43 | Physician Documentation ---
History of Present Illness ~ Chief Complaint: Toe pain Stated Complaint: FOOT WOUNDS Time Seen by MD: 14:23 Primary Medical Doctor: none HPI 58-year-old female patient presents to the ED with a complaint of right great toe pain x1 year. She states that she developed a growth on her medial aspect of her great toe and is causing discomfort when walking Tetanus witin 5 years: No Medication Reconciliation Allergies: Coded Allergies: No Known Allergies (Unverified , 06/19/24) Scheduled Bictegrav/Emtricit/Tenofov Ala (Biktarvy 50-200-25 mg Tablet), 1 TAB PO DAILY Bictegrav/Emtricit/Tenofov Ala (Biktarvy 50-200-25 mg Tablet), 1 TAB PO QDD Buprenorphine HCl/Naloxone HCl (Suboxone 12 mg-3 mg Sl Film), 1 STRIP SL DAILY Gabapentin (Neurontin), 1 TAB PO Q8H Sulfamethoxazole/Trimethoprim (Septra Ds Tab), 1 TAB PO Q12H Scheduled PRN ONDANSETRON ODT 4mg tablet (Ondansetron Odt), 1 TAB PO Q6H PRN PRN for nausea/vomiting Past Medical History Past Medical History: Hepatitis C, Chronic Back Pain, HIV Past Surgical History: no surgical history Alcohol Use: Occasionally Drug Use: marijuana, methamphetamine, other Lives with: Alone Lives In: Homeless Occupation: unemployed Review of Systems All Other Systems at this time: Reviewed and Negative ROS As stated above in the HPI, otherwise all systems are reviewed and negative. Physical Exam Vital Signs: Temperature: 96.9, Source: Temporal, Heart Rate: 77, Respiratory Rate: 18, BP: 138/80, Pulse Oximetry: 96, Weight: 75.000 Oxygen Flow Rate: 0 Physical Exam General: Alert, no apparent distress. Respiratory: Lungs clear, no respiratory distress. Cardiovascular: Regular rate and rhythm, no murmurs. Gastrointestinal: Soft, nontender, nondistended. Bowels sounds present. Extremities: right great toe black skin growth 0Neurologic: Oriented x4. Psychiatric: Normal mood and affect. Skin: Normal color, warm and dry. No edema, no ecchymosis. Progress Results/Orders Results/Orders Orders - GREG LOPES LEAD PYTHON DEVELOPER Toe(S) (12/10/24 14:49) Completed Orders - GREG LOPES LEAD PYTHON DEVELOPER Toe(S) (12/10/24 14:49) Sulfamethox/Trimetho. Ds Tab (Septra Ds (12/10/24 15:25) Vital Signs 12/10/24 13:55 Temp 96.9 Pulse 77 Resp 18 B/P (MAP) 138/80 Pulse Ox 96 O2 Flow Rate 0 Medical Decision Making Findings Patient presents nontoxic and mostly asymptomatic except when walking. Denies any history of diabetes. I recommend at this point to get an evaluation by Podiatry. Radiologist's in my interpretation of patient's x-ray do not indicate any signs of obvious osteomyelitis.. Is however a soft tissue ulceration we will likely Departure Disposition: HOME / SELF CARE / HOMELESS Impression: Primary Impression: Toe swelling Condition: Stable Additional Instructions: Command getting a forensic photographer evaluation in the outpatient setting. You can obtain this from your primary care. This time I do not see any need to pursue further imaging. Your x-ray did not show any signs of osteomyelitis which was my initial concern. Did start you on some antibiotics to treat any soft tissue infection secondary to your ulceration Referrals: NO PRIMARY CARE PROVIDER (PCP) Prescriptions Sulfamethoxazole/Trimethoprim (Septra Ds Tab) 800 Mg/160 Mg Tablet 1 TAB PO Q12H for 10 Days, #20 TAB Prov: GREG LOPES LEAD PYTHON DEVELOPER 12/10/24 Education Educated: Patient Educated regarding: diagnosis Signature Scribe Signature: x Attestation: Scribed for Greg Lopes Metal Model Builder by Greg Corea NP . 12/10/24 15:21 GREG LOPES LEAD PYTHON DEVELOPER Dec 10, 2024 14:43
--- NOTE | 2024-12-10 15:14 | RADIOLOGY REPORT ---
CLINICAL INDICATION: black skin growth RIGHT 1ST TOE TECHNIQUE: DI TOE(S) Comparison: None FINDINGS/IMPRESSION: : There is no evidence of acute fracture or dislocation. Soft-tissue ulceration at the distal 1st digit. No definite radiographic findings of acute osteomyelitis.
[2024-12-10] MEDS ORDERED: SULF1TAB45 PO (15:21)
[2024-12-10] MEDS: sulfamethoxazole/trimethoprim DS (800/160mg) tablet PO ONE (16:00)
[2024-12-10 16:01] VITALS: TEMP 96.9
== END 2024-12-10 16:03 | disposition home or self-care (01) ==
LOC: ER 13:43
DX: M79.89 Other specified soft tissue disorders (principal); F12.90 Cannabis use, unspecified, uncomplicated; F15.90 Other stimulant use, unspecified, uncomplicated; F19.90 Other psychoactive substance use, unspecified, uncomplicated; Z56.0 Unemployment, unspecified; Z79.899 Other long term (current) drug therapy; Z59.00 Homelessness unspecified; Z60.2 Problems related to living alone; Z72.89 Other problems related to lifestyle
CPT/HCPCS: 73660; 99283

== ENCOUNTER 2025-03-01 11:13 | Emergency (ER) | payer MEDICAID ==
[~2025-03-01] VITALS: Ht 177.8 cm; Wt 73.3 kg
[2025-03-01 11:21] VITALS: BP 116/68; PULSE 84; RESP 16; O2SAT 99
--- NOTE | 2025-03-01 12:04 | Physician Documentation ---
HPI ~ General Chief Complaint: Medication Request Stated Complaint: WITHDRAWAL SYMPTOMS Time Seen by MD: 11:52 Primary Medical Doctor: none History of Present Illness HPI Comments 59 he will female presents to the ED requesting Suboxone refill he has that the pharmacy would not provide them with the prescription they were given. Requesting a single film to avoid further withdrawal they have not had Suboxone for three days Without Medications Since: Mar 01, 2025 Medication Reconciliation Allergies: Coded Allergies: No Known Allergies (Unverified , 06/19/24) Scheduled Bictegrav/Emtricit/Tenofov Ala (Biktarvy 50-200-25 mg Tablet), 1 TAB PO DAILY Bictegrav/Emtricit/Tenofov Ala (Biktarvy 50-200-25 mg Tablet), 1 TAB PO QDD Buprenorphine HCl/Naloxone HCl (Suboxone 12 mg-3 mg Sl Film), 1 STRIP SL DAILY Gabapentin (Neurontin), 1 TAB PO Q8H Scheduled PRN ONDANSETRON ODT 4mg tablet (Ondansetron Odt), 1 TAB PO Q6H PRN PRN for nausea/vomiting Past Medical History Past Medical History: Hepatitis C, Chronic Back Pain, HIV Past Surgical History: no surgical history Alcohol Use: Occasionally Drug Use: marijuana, methamphetamine, other Lives with: Alone Lives In: Homeless Occupation: unemployed Review of Systems All Other Systems at this time: Reviewed and Negative ROS As stated above in the HPI, otherwise all systems are reviewed and negative. Physical Exam Physical Exam Vital Signs: Temperature: 97.9, Source: Temporal, Heart Rate: 84, Respiratory Rate: 16, BP: 116/68, Pulse Oximetry: 99, Weight: 73.300 Physical Exam General: Alert, no apparent distress. Respiratory: Lungs clear, no respiratory distress. Chest: No accessory muscle use. Cardiovascular: Regular rate and rhythm, no murmurs. Gastrointestinal: Soft, nontender, nondistended. Bowels sounds present. Neurologic: Oriented x4. Psychiatric: Normal mood and affect. Skin: Normal color, warm and dry. No edema, no ecchymosis. Progress Results/Orders Results/Orders Completed Orders - GREG LOPES NP Buprenorphine/Naloxone Sl Film (Suboxone (03/01/25 12:05) Medications Received in ER Medications (Trade) Dose Ordered Sig/Tito Route PRN Reason Start Time Stop Time Status Last Admin Dose Admin (Suboxone 8MG-2MG SL film) 1 film NOW ONCE SL 03/01/25 12:05 03/01/25 12:06 DC 03/01/25 12:11 1 FILM Vital Signs 03/01/25 03/01/25 11:21 12:15 Temp 97.9 97.9 Pulse 84 Resp 16 B/P (MAP) 116/68 Pulse Ox 99 Medical Decision Making Findings Patient was provided a single strip of Suboxone while in the ED per their request he will follow up in the outpatient setting for further opioid recovery medication Differential Dx:Considerations: Include: Adverse circumstances, Economic, Psychosocial, Medical services unavail., Medication refill, Medication non- compliance, Other Departure Disposition: 01 HOME / SELF CARE / HOMELESS Impression: Primary Impression: General medical exam Additional Impression: Opioid dependence with withdrawal Condition: Stable Discharge Instructions: Medicine Refill at the Emergency Department Referrals: NO PRIMARY CARE PROVIDER (PCP) Education Educated: Patient Educated regarding: diagnosis Signature Scribe Signature: Attestation: Scribed for Greg Lopes Performance Improvement Consultant by Greg Lopes - TITO . 03/01/25 18:01 GREG LOPES HABITAT MANAGEMENT COORDINATOR Mar 01, 2025 12:04
[2025-03-01] MEDS: buprenorphine/naloxone 8MG-2MG SUBlingual film SL ONE (12:11)
[2025-03-01 12:15] VITALS: TEMP 97.9
== END 2025-03-01 12:16 | disposition home or self-care (01) ==
LOC: ER 11:14
DX: Z00.8 Encounter for other general examination (principal); F11.23 Opioid dependence with withdrawal; F12.90 Cannabis use, unspecified, uncomplicated; F15.90 Other stimulant use, unspecified, uncomplicated
CPT/HCPCS: 99283